=== PATIENT | female | born 1960 | race Caucasian/White ===

== ENCOUNTER 2018-01-08 11:06 | Outpatient (CLI) | payer OTHER | END 2018-01-08 11:07 | disposition home or self-care (01) | LOC: SC 11:06 | PROVIDERS: ATTEND Nurse Practitioner Family | DX: G47.33 Obstructive sleep apnea (adult) (pediatric) (principal) | CPT/HCPCS: 99212; 99214 ==

== ENCOUNTER 2018-03-19 09:21 | Outpatient (CLI) | payer OTHER | END 2018-03-19 09:22 | disposition home or self-care (01) | LOC: SC 09:21 | PROVIDERS: ATTEND Nurse Practitioner Family | DX: G47.33 Obstructive sleep apnea (adult) (pediatric) (principal) | CPT/HCPCS: 99212; 99213 ==

== ENCOUNTER 2018-05-28 13:20 | Outpatient (CLI) | payer OTHER | END 2018-05-28 13:21 | disposition home or self-care (01) | LOC: SC 13:20 | PROVIDERS: ATTEND Nurse Practitioner Family | DX: G47.33 Obstructive sleep apnea (adult) (pediatric) (principal) | CPT/HCPCS: 99212; 99214 ==

== ENCOUNTER 2020-11-23 12:54 | Outpatient (CLI) | payer OTHER ==
--- NOTE | 2020-11-23 13:53 | SLEEP CARE CONSULTATION ---
Information from patient questionnaire entered by Radha Haley. I have reviewed and concur with the information entered by Radha Haley. This document represents the service I personally performed and the decisions made by , Lexi James ARNP. History of Present Illness Service Date and Time: 11/23/2020 1254 Previous diagnosis: Severe, Obstructive Sleep Apnea-Hypopnea Syndrome AHI: 47.9 Reason for follow up: annual (Last seen 05/2018, CPAP issues) Equipment type: CPAP Equipment obtained from: [employer] (she has not been getting supplies because of lower use, they have been offering) Mask style: Full face Backup mask available: Yes (old mask) Prior sleep studies: Yes Year and Where: 2011 [facility] Type of Sleep Study: Polysomnography HPI additional information: CADENCE HANSEN was diagnosed to have severe, AHI 47.9, obstructive sleep apnea- hypopnea syndrome and returned today for CPAP therapy annual follow-up. CPAP Compliance Data - Data Reviewed with Patient Average duration of nightly device use: 2 hours 35 minutes Compliance rate %: 3.3 Current pressure setting (cmH2O): 8-10 Average residual AHI: 2.0 Average large leak: 8 min 17 sec Subjective Missed days of use due to: reports: other (Not working right) Patient concerns: reports: nasal congestion, other (Headache; does not feel like she is getting enough air, feels like suffocating). denies: aerophagia, mask discomfort, air blowing in eyes, mask leak noise, condensation in mask/hose, dry mouth, nose, throat, epistaxis Observed to snore while using device: No Current pressure setting perceived as: too low (now but not for the last 6 months) On therapy, patient: reports: sleeping better, awakening more refreshed, being more awake and alert during the day, more rested overall. denies: drowsiness while driving Initial [place] Sleepiness Scale score: 13 (in 2011 (12 in 2015)) Current [place] Sleepiness Scale score: 10 Allergies and Home Medications Drug allergies reviewed: Yes (vicodin, demerol, hydrocodone) Home medication list reviewed: Yes (no changes) Review of Systems Review of systems same as previous: Yes (no changes) Physical Exam Heart Rate: 81 O2 Saturation: 97 Height: 5 ft 7 in Weight: 234 lb Body Mass Index: 36.6 BMI Classification: Obese Impression and Plan 1. Obstructive Sleep Apnea-Hypopnea Syndrome, severe, with poor treatment compliance and good apnea control. On CPAP therapy, the patient has better sleep quality and is more rested overall. She has been unable to use her machine consistently due to air hunger and the machine does not seem to be functioning correctly. This is her original machine when she started on CPAP and is over 7 years old. Thus, the CPAP will be updated. A DWO prescription will be made. Compliance guidelines for new device and follow up discussed. Patient's apnea severity and rationale for treatment to reduce apnea, improve sleep quality and reduce cardiovascular and cerebrovascular events was reviewed. I also reviewed the benefit of consistent device use of CPAP for migraines. * Continue auto CPAP pressure at 8-10 cmH2O * Update machine and supplies * Notify me if snoring with mask or feeling that the pressure is too much or too little * Attempt to lose weight * Call this office if any problems using CPAP * Return for follow up 1 month after obtaining new machine, or sooner if concerns arise Counseling Topics: Spare mask, Weight loss health impact Visit Type: In Office Time Spent with Patient (minutes): 20 Provider Statement: I spent 100% of the Face to Face Visit with the patient with greater than 50% spent counseling the patient and coordination of care.
== END 2020-11-23 12:55 | disposition home or self-care (01) ==
LOC: SC 12:54
PROVIDERS: ATTEND Nurse Practitioner Family
DX: G47.33 Obstructive sleep apnea (adult) (pediatric) (principal); E66.9 Obesity, unspecified; Z68.36 Body mass index [BMI] 36.0-36.9, adult
CPT/HCPCS: 99212; 99213

== ENCOUNTER 2021-01-11 14:28 | Outpatient (CLI) | payer OTHER ==
--- NOTE | 2021-01-11 14:55 | SLEEP CARE CONSULTATION ---
Information from patient questionnaire entered by Radha Haley. I have reviewed and concur with the information entered by Radha Haley. This document represents the service I personally performed and the decisions made by , Lexi James ARNP. History of Present Illness Service Date and Time: 01/11/2021 1428 Previous diagnosis: Severe, Obstructive Sleep Apnea-Hypopnea Syndrome AHI: 47.9 Reason for follow up: first compliance after device update (12/07/20) Equipment type: CPAP Equipment obtained from: [employer] (she has not been getting supplies because of lower use, they have been offering) Mask style: Full face Backup mask available: Yes (old mask) Last cushion change: 1 month Prior sleep studies: Yes Year and Where: 2011 [facility] [place] Type of Sleep Study: Polysomnography HPI additional information: CADENCE HANSEN was diagnosed to have severe, AHI 47.9, obstructive sleep apnea- hypopnea syndrome and returned today for CPAP therapy first compliance after updating device follow-up. CPAP Compliance Data - Data Reviewed with Patient Average duration of nightly device use: 6 h 46 min Compliance rate %: 76.7 Current pressure setting (cmH2O): 8-10 Humidity settin Heated hose settin Average residual AHI: 2.9 Average large leak: 18 min 10 sec Subjective Missed days of use due to: reports: travel Patient concerns: reports: aerophagia (seems to be improving since started with new machine), other (headache). denies: mask discomfort, air blowing in eyes, mask leak noise, condensation in mask/hose, nasal congestion, dry mouth, nose, throat, epistaxis Observed to snore while using device: No Current pressure setting perceived as: comfortable On therapy, patient: reports: sleeping better, awakening more refreshed, being more awake and alert during the day, more rested overall. denies: drowsiness while driving Initial [place] Sleepiness Scale score: 13 (in 2011 (12 in 2015)) Current [place] Sleepiness Scale score: 11 Allergies and Home Medications Home medication list reviewed: Yes (no changes) Review of Systems Review of systems same as previous: Yes (no changes) Physical Exam Heart Rate: 76 O2 Saturation: 98 Height: 5 ft 7 in Weight: 239 lb Body Mass Index: 37.4 BMI Classification: Obese Impression and Plan 1. Obstructive Sleep Apnea-Hypopnea Syndrome, severe, with fair treatment compli ance and good apnea control. On CPAP therapy, the patient has better sleep quality and is more rested overall. She had some aerophagia with burping air in the morning when she first got her new machine. She states since she returned from her daughter's house she has not noticed any more aerophagia. She gets headaches but states she always has and does not know that it has anything to do with the CPAP machine. She is happy with the new machine and current pressure setting. We will keep her at the current setting and have her follow up in 1 year. Patient's apnea severity and rationale for treatment to reduce apnea, improve sleep quality and reduce cardiovascular and cerebrovascular events was reviewed. I also reviewed the benefit of consistent device use of CPAP for migraines. * Continue auto CPAP pressure at 8-10 cmH2O * Notify me if snoring with mask or feeling that the pressure is too much or too little * Attempt to lose weight * Call this office if any problems using CPAP * Return for follow up in 1 year, or sooner if concerns arise Counseling Topics: Spare mask, Weight loss health impact Visit Type: In Office Time Spent with Patient (minutes): 15 Provider Statement: I spent 100% of the Face to Face Visit with the patient with greater than 50% spent counseling the patient and coordination of care.
== END 2021-01-11 14:29 | disposition home or self-care (01) ==
LOC: SC 14:28
PROVIDERS: ATTEND Nurse Practitioner Family
DX: G47.33 Obstructive sleep apnea (adult) (pediatric) (principal); E66.9 Obesity, unspecified; Z68.37 Body mass index [BMI] 37.0-37.9, adult
CPT/HCPCS: 99212

== ENCOUNTER 2022-03-15 11:44 | Outpatient (CLI) | payer OTHER ==
[2022-03-15 12:22] VITALS: BP 123/73
--- NOTE | 2022-03-15 12:22 | SLEEP CARE CONSULTATION ---
Information from patient questionnaire entered by Pita Gamez MA. I have reviewed and concur with the information entered by Pita Gamez MA. This document represents the service I personally performed and the decisions made by , Lexi James ARNP. History of Present Illness Service Date and Time: 03/15/2022 1144 Previous diagnosis: Severe, Obstructive Sleep Apnea-Hypopnea Syndrome AHI: 47.9 Reason for follow up: annual (LAST , NALINI, ) Equipment type: CPAP Equipment obtained from: [employer] (getting supplies as needed) Mask style: Full face Backup mask available: Yes (old mask) Last cushion change: 3+ week Prior sleep studies: Yes Year and Where: 2011 [facility] Type of Sleep Study: Polysomnography HPI additional information: CADENCE HANSEN was diagnosed to have severe, AHI 47.9, obstructive sleep apnea- hypopnea syndrome and returned today for CPAP therapy annual follow-up. Sleep Study - Results Type of Sleep Study: Polysomnography Prior sleep studies: Yes Year and Where: 2011 [facility] CPAP Compliance Data - Data Reviewed with Patient Average duration of nightly device use: 5 hours 50 minutes Compliance rate %: 98.9 (30 days; usage) Current pressure setting (cmH2O): 6-10 (9.7 avg pressure) Humidity settin Heated hose settin Average residual AHI: 3.6 Compliance data discussion: She had [employer] representatives help her get right filters for her new [employer] 2. Subjective Missed days of use due to: reports: travel, other (new machine) Patient concerns: reports: aerophagia (occasional), other (headache- chroinc headache sufferer). denies: mask discomfort, air blowing in eyes, mask leak noise, condensation in mask/hose, nasal congestion, dry mouth, nose, throat, epistaxis Observed to snore while using device: No Current pressure setting perceived as: comfortable On therapy, patient: reports: sleeping better, awakening more refreshed, being m ore awake and alert during the day, more rested overall. denies: drowsiness while driving Initial [place] Sleepiness Scale score: 13 (in 2011 (12 in 2015)) Current [place] Sleepiness Scale score: 7 (2021) Allergies and Home Medications Known drug allergies: Yes (vicadoin, ) Home medication list reviewed: Yes (meds for stomach aches, started last week) Review of Systems Review of systems same as previous: Yes (no changes) Physical Exam Vital signs obtained and entered by: NEEMA PERES Blood Pressure: 123/73 (resp 18, pulse 72, left,) Heart Rate: 74 O2 Saturation: 97 Height: 5 ft 7 in Weight: 248 lb Weight change since last visit: 11 lb gain Body Mass Index: 38.8 BMI Classification: Obese Impression and Plan 1. Obstructive Sleep Apnea-Hypopnea Syndrome, severe, with good treatment compliance and good apnea control. On CPAP therapy, the patient has better sleep quality and is more rested overall. She occasionally gets bloating feeling in her stomach and burping in the morning. She states it does not happen very often. She continues to have headaches but states they are not related to her CPAP use. Patient denies problems with oral dryness, nasal congestion, epistaxis or skin irritation. Patient's apnea severity and rationale for treatment to reduce apnea, improve sleep quality and reduce cardiovascular and cerebrovascular events was reviewed. I also reviewed the benefit of consistent device use of CPAP for migraines. 2. Obesity, unspecified. Patient has gained weight. Currently patients BMI is 38.8. Obesity increases the risk of apnea, CPAP pressure requirements and overall health risks especially cardiovascular and diabetes. Thus patient is advised to lose weight. Weight loss can be done with reducing portion size, reducing refined foods and balancing content with vegetables, fruit and whole grain foods. In addition, patient encouraged to get regular exercise. The patient's CPAP pressure range should accommodate some weight loss. Symptoms to report for additional pressure adjustment discussed. * Continue auto CPAP pressure at 6-10 cmH2O * Notify me if snoring with mask or feeling that the pressure is too much or too little * Attempt to lose weight * Call this office if any problems using CPAP * Return for follow up in 1 year, or sooner if concerns arise Counseling Topics: Spare mask, Weight loss health impact Visit Type: In Office Time Spent with Patient (minutes): 21 Provider Statement: I spent 100% of the Face to Face Visit with the patient with greater than 50% spent counseling the patient and coordination of care.
== END 2022-03-15 11:45 | disposition home or self-care (01) ==
LOC: SC 11:44
PROVIDERS: ATTEND Nurse Practitioner Family
DX: G47.33 Obstructive sleep apnea (adult) (pediatric) (principal); E66.9 Obesity, unspecified; Z68.38 Body mass index [BMI] 38.0-38.9, adult
CPT/HCPCS: 99212; 99213